=== PATIENT | male | born 1930 | race Caucasian/White ===

== ENCOUNTER 2018-12-23 23:30 | Inpatient (IN) ==
[2018-12-24] MEDS ORDERED: Naloxone 0.4 MG/ML INJ IVP PRN ×2 (06:40→18:24)
[2018-12-24] MEDS ORDERED: 0.9 % Sodium Chloride 1,000 ML IVC ONE (06:53)
[2018-12-24 07:23] LABS: Hemoglobin 14.4 g/dL (12.9-16.9); Mean Corpuscular HGB Conc 34.3 g/dL (31.6-35.5); Mean Corpuscular Hemoglobin 30.5 pg (28.0-33.3); Mean Platelet Volume 11.4 fL (9.4-12.4); Platelet Count 139 K/mcL (140-400); Red Blood Count 4.72 M/mcL (4.19-5.50); Red Cell Distribution Width 12.6 % (11.5-14.5); White Blood Count 8.5 K/mcL (4.3-11.1)
[2018-12-24 07:44] LABS: BUN/Creatinine Ratio 14 (6-26); Blood Urea Nitrogen 17 mg/dL (8-23); Calcium 8.4 mg/dL (8.6-10.3); Carbon Dioxide 29 mEq/L (23-29); Chloride 102 mEq/L (98-107); Glucose 137 mg/dL (70-105); Osmolality,Calculated 290 (280-300); Potassium 3.7 mEq/L (3.5-5.1); Sodium 138 mEq/L (136-145); eGFR For African Americans > 60 (> 60); eGFR For Non-African Americans 58 (> 60)
[2018-12-24] MEDS ORDERED: Morphine Sulfate 2 MG/ML SYRINGE IVP PRN (09:12)
[2018-12-24] MEDS ORDERED: Lisinopril 20 MG TABLET PO SCH (12:45)
[2018-12-24] MEDS ORDERED: *HR* FentaNYL (PF) 100 MCG/2 ML VIAL ONE (16:24)
[2018-12-24] MEDS ORDERED: *HR* Propofol 200 MG/20 ML VIAL IVP ONE (16:24)
[2018-12-24] MEDS ORDERED: Lidocaine -MPF 2% 2 ML VIAL ONE (16:26)
[2018-12-24] MEDS ORDERED: Ondansetron 4 MG/2 ML VIAL ONE (16:26)
[2018-12-24] MEDS ORDERED: Isovue-300 50ML VIAL ONE (16:32)
[2018-12-24] MEDS ORDERED: *HR* Succinylcholine 200 MG/10 ML VIAL IVP ONE (16:38)
[2018-12-24] MEDS ORDERED: Ondansetron 4 MG/2 ML VIAL IVP ONE (16:40)
[2018-12-24] MEDS ORDERED: *HR* FentaNYL (PF) 100 MCG/2 ML VIAL IVP PRN (16:40)
[2018-12-24] MEDS ORDERED: Acetaminophen IV 1,000 MG/100 ML INFUS..BTL IVPB PRN (18:24)
[2018-12-24] MEDS ORDERED: *HR* HYDROcodone/Acet 5/325 mg TABLET PO PRN (18:24)
[2018-12-25 05:08] LABS: Hematocrit 40.8 % (37.5-50.1); Hemoglobin 13.8 g/dL (12.9-16.9); Mean Corpuscular HGB Conc 33.8 g/dL (31.6-35.5); Mean Corpuscular Hemoglobin 31.2 pg (28.0-33.3); Mean Corpuscular Volume 92.1 fL (83.0-100.0); Mean Platelet Volume 11.5 fL (9.4-12.4); Platelet Count 129 K/mcL (140-400); Red Blood Count 4.43 M/mcL (4.19-5.50); Red Cell Distribution Width 12.8 % (11.5-14.5); White Blood Count 10.1 K/mcL (4.3-11.1)
[2018-12-25 05:28] LABS: BUN/Creatinine Ratio 17 (6-26); Blood Urea Nitrogen 21 mg/dL (8-23); Calcium 8.3 mg/dL (8.6-10.3); Carbon Dioxide 28 mEq/L (23-29); Chloride 103 mEq/L (98-107); Glucose 148 mg/dL (70-105); Osmolality,Calculated 294 (280-300); Sodium 139 mEq/L (136-145); eGFR For African Americans > 60 (> 60); eGFR For Non-African Americans 56 (> 60)
[2018-12-25 07:29] VITALS: BP 95/64
[2018-12-25] MEDS ORDERED: Lisinopril 20 MG TABLET PO SCH (09:00)
[2018-12-27 19:06] LABS: Calculi Mass 20 mg
== END 2018-12-25 12:10 | disposition home or self-care (01) | DRG 661 ==
LOC: 3BNU
PROVIDERS: ADMIT Family Medicine; ATTEND Family Medicine